=== PATIENT | male | born 2000 | race Hispanic/Latino ===

== ENCOUNTER 2023-01-06 23:57 | Emergency (ER) | payer OTHER ==
[~2023-01-06] VITALS: Ht 177.8 cm; Wt 86.2 kg
[2023-01-07] MEDS ORDERED: LEVOTHYROXINE25 MC1 (01:12)
[2023-01-07] MEDS ORDERED: LANTUS100 UNITS/ (01:12)
[2023-01-07] MEDS ORDERED: NOVOLOG100 UNIT/2 (01:12)
[2023-01-07] MEDS ORDERED: HYDROCODON-ACE1 EA10 PO (02:15)
[2023-01-07] MEDS ORDERED: CRUTCHES XX (02:21)
[2023-01-07 02:42] VITALS: BP 118/72
== END 2023-01-07 02:42 | disposition home or self-care (01) ==
LOC: ED 23:57
DX: S82.254A Nondisplaced comminuted fracture of shaft of right tibia, initial encounter for closed fracture (principal); E10.9 Type 1 diabetes mellitus without complications; W03.XXXA Other fall on same level due to collision with another person, initial encounter; Z79.4 Long term (current) use of insulin; Z79.890 Hormone replacement therapy
CPT/HCPCS: 36415; 73590; 80053; 85025; 90715; A9270; G0480; J2270; J2405